=== PATIENT | female | born 1970 | race Caucasian/White ===

== ENCOUNTER 2017-03-31 08:20 | Emergency (ER) | payer OTHER ==
[~2017-03-31] VITALS: Ht 157.5 cm; Wt 74.8 kg
[2017-03-31 08:21] VITALS: BP 135/95
[2017-03-31] MEDS ORDERED: BACTRIM DS TAB1 EACH PO (08:42)
== END 2017-03-31 08:44 | disposition home or self-care (01) ==
LOC: ER 08:20
DX: S00.86XA Insect bite (nonvenomous) of other part of head, initial encounter (principal); S00.06XA Insect bite (nonvenomous) of scalp, initial encounter; S20.362A Insect bite (nonvenomous) of left front wall of thorax, initial encounter; S20.361A Insect bite (nonvenomous) of right front wall of thorax, initial encounter; L08.9 Local infection of the skin and subcutaneous tissue, unspecified; E11.9 Type 2 diabetes mellitus without complications; F32.9 Major depressive disorder, single episode, unspecified; F41.9 Anxiety disorder, unspecified; F43.10 Post-traumatic stress disorder, unspecified; F17.210 Nicotine dependence, cigarettes, uncomplicated; F10.99 Alcohol use, unspecified with unspecified alcohol-induced disorder; Z98.890 Other specified postprocedural states; Z86.19 Personal history of other infectious and parasitic diseases; W57.XXXA Bitten or stung by nonvenomous insect and other nonvenomous arthropods, initial encounter; Y93.89 Activity, other specified; Y92.89 Other specified places as the place of occurrence of the external cause; Y99.8 Other external cause status